=== PATIENT | female | born 1930 | race Hispanic/Latino ===

== ENCOUNTER 2018-03-17 14:15 | Observation (INO) | payer MEDICARE ==
--- NOTE | 2018-03-17 15:12 | ED PDOC ---
Arrival/HPI - General Historian: Patient, Family (daughter) - History of Present Illness Time/Duration: 1 week Symptom Onset: Gradual Symptom Course: Intermittent, Worsening - General Chief Complaint: Chest Pain Time Seen by Provider: 03/17/18 14:24 - History of Present Illness Narrative History of Present Illness (Text): 03/17/18 15:20 Patient is a 87 year old female with an extensive cardiac history (see below) presenting with 1 week history of worsening, intermittent chest discomfort. Patient is accompanied by her daughter, who is a nurse. Patient has been experiencing intermittent chest discomfort for 1 week which the patient and her daughter thought was indigestion. Each episode of chest discomfort lasts for approximately 10 minutes. It is located substernally/left side of her chest. Patient has been taking Maalox for the past 5 days with mild improvement. The patient also reports that her chest is very tender if anything touches it. She took tylenol which normally helps but got no relief. Daughter also states that she has noticed that the patient's sternum has been protruding more than usual over the past couple of days. Her sternum protrudes at baseline due to prior open heart surgery but it has been more prominent recently. Patient states that she can normally tell if her chest discomfort is indigestion vs cardiac in nature and today just felt different, which is why she decided to come to the hospital. She also reports increased urinary frequency but denies dysuria or incontinence. She states that she also started to have left sided flank pain today. Patient denies fevers, chills, nausea, vomiting, diarrhea, constipation, shortness of breath, palpitations, abdominal pain, numbness, tingling, lightheadedness or dizziness. PMH: Thyroid cancer (s/p resection), hypothyroid, hypertension, CAD and HLD Cardiac History - 2008: [place] (2 stents), 2009: [place] (4 more stents), 2010: Triple bypass and Aortic valve replacement (cow) Per daughter, Patient's daughter has recently taken over her medications because the patient has been more forgetful of late and has not been taking her medications daily. (HamDudley) Past Medical History - Provider Review Nursing Documentation Reviewed: Yes - Infectious Disease Hx of Infectious Diseases: None - Cardiac Hx Cardiac Disorders: Yes (triple bypass with aortic valve replacement) Hx Hypertension: Yes - Pulmonary Hx Chronic Obstructive Pulmonary Disease (COPD): Yes (home nebulizer) - Neurological Hx Neurological Disorder: Yes Hx Transient Ischemic Attacks (TIA): Yes - HEENT Hx HEENT Disorder: Yes Hx Cataracts: Yes (LEFT, right cataract sx-LASER SX) - Renal Hx Renal Disorder: No - Endocrine/Metabolic Hx Diabetes Mellitus Type 2: Yes Hx Hypothyroidism: Yes (THYROIDECTOMY) - Hematological/Oncological Hx Blood Disorders: Yes Hx Anemia: Yes - Integumentary Hx Dermatological Disorder: No - Musculoskeletal/Rheumatological Hx Musculoskeletal Disorders: Yes Hx Back Pain: Yes Hx Falls: Yes Hx Fractures: Yes (FEMUR FX) Hx Unsteady Gait: Yes (cane/walker) - Gastrointestinal Hx Gastrointestinal Disorders: Yes (GI BLEED,SIGMOID RESECTION,UMBILICAL HERNIA, ) Hx Diverticulitis: Yes Hx Gall Bladder Disease: Yes (CHOLECYSTECTOMY) - Genitourinary/Gynecological Hx Genitourinary Disorders: Yes Hx Urinary Tract Infection: Yes - Psychiatric Hx Psychophysiologic Disorder: Yes Hx Anxiety: Yes Hx Depression: No Hx Emotional Abuse: No Hx Physical Abuse: No Hx Substance Use: No - Surgical History Hx Cholecystectomy: Yes Hx Coronary Stent: Yes (x6) Hx Valve Replacement: Yes Other/Comment: umbilical hernia, laser sx right eye - Anesthesia Hx Anesthesia: Yes Hx Anesthesia Reactions: No Hx Malignant Hyperthermia: No - Suicidal Assessment Feels Threatened In Home Enviroment: No Family/Social History - Physician Review Nursing Documentation Reviewed: Yes Family/Social History: No Known Family HX Smoking Status: Never Smoked Hx Alcohol Use: No Hx Substance Use: No Allergies/Home Meds Allergies/Adverse Reactions: Allergies moxifloxacin HCl [From Avelox] Allergy (Verified 04/22/16 12:02) RASH nitrofurantoin [From Macrobid] Allergy (Verified 04/22/16 12:02) RASH nitrofurantoin macrocrystalline [From Macrobid] Allergy (Verified 04/22/16 12:02 ) RASH Home Medications: Home Meds Medication Instructions Recorded Confirmed Aspirin [Ecotrin] 325 mg PO DAILY 12/10/13 03/17/18 Metoprolol Succinate [Toprol Xl] 50 mg PO DAILY 12/10/13 03/17/18 Levothyroxine Sodium 100 mcg PO DAILY 04/22/16 03/17/18 Risperidone [Risperdal] 1 tab PO BID 03/17/18 03/17/18 Review of Systems - Physician Review All systems were reviewed & negative as marked: Yes - Review of Systems Constitutional: Normal. absent: Fatigue, Fevers Eyes: Normal. absent: Vision Changes ENT: Normal Respiratory: Normal. absent: SOB, Cough Cardiovascular: Chest Pain. absent: Palpitations, Edema, STEWART Gastrointestinal: absent: Abdominal Pain, Constipation, Diarrhea, Nausea, Vomiting Genitourinary Female: Frequency. absent: Dysuria, Hematuria Musculoskeletal: Back Pain (left flank) Skin: Normal Neurological: Normal. absent: Headache, Dizziness, Focal Weakness Endocrine: Normal Psychiatric: Normal Physical Exam Vital Signs Reviewed: Yes Temperature: Afebrile Blood Pressure: Hypertensive Pulse: Regular Respiratory Rate: Normal Appearance: Positive for: Well-Appearing, Non-Toxic, Comfortable Pain Distress: None Mental Status: Positive for: Alert and Oriented X 3 Finger Stick Blood Glucose: 101 - Systems Exam Head: Present: Atraumatic, Normocephalic Pupils: Present: PERRL Extroacular Muscles: Present: EOMI Conjunctiva: Present: Normal Mouth: Present: Moist Mucous Membranes Neck: No: Lymphadenopathy Respiratory/Chest: Present: Clear to Auscultation, Good Air Exchange, Tender to Palpation (TTP on sternum, most tender over left chest. ), Other (well healed sternotomy scar, protrusion of sternum). No: Respiratory Distress, Accessory Muscle Use Cardiovascular: Present: Regular Rate and Rhythm, Normal S1, S2. No: Murmurs Abdomen: No: Tenderness, Distention, Peritoneal Signs Back: Present: CVA Tenderness (b/l) Upper Extremity: Present: Normal Inspection, NORMAL PULSES. No: Cyanosis, Edema Lower Extremity: Present: Normal Inspection. No: Edema, CALF TENDERNESS Neurological: Present: GCS=15, CN II-XII Intact, Speech Normal Skin: Present: Warm, Dry, Normal Color. No: Rashes Psychiatric: Present: Alert, Oriented x 3, Normal Insight, Normal Concentration Vital Signs Temp Pulse Resp BP Pulse Ox 03/17/18 20:57 67 18 98 03/17/18 17:28 98.3 F 72 18 162/66 H 94 L 03/17/18 14:16 97.9 F 71 18 152/90 H 95 Medical Decision Making Re-evaluation Time: 18:24 Reassessment Condition: Re-examined, Improving,but remains with symptoms - Lab Interpretations I have reviewed the lab results: Yes ED Course and Treatment: 03/17/18 15:53 Orders: * Aspirin 325mg PO stat * CBC * CMP * Mag * Phos * MARIELA * EKG * CT Chest/abd/pelvis * Urinalysis/culture 03/17/18 18:24 Patient is still experiencing mild intermittent chest pain. Discussed plan to admit patient for observation with patient and her daughter at bedside. Patient agrees to overnight observation. Discussed case with Dr. Anna. He has agreed to admit patient for chest pain observation under his service. He requested patient's solutions specialist, Dr. Keen be placed as consult. (Ham,Dudley) Seen and examined with resident. 87 y/o F p/w chest pain. On exam, reproducible tenderness. (Tom Mcmanus) - Lab Interpretations Lab Results: 03/17/18 14:30 03/17/18 14:30 Lab Results 03/17/18 15:47: Urine Color Yellow, Urine Appearance Clear, Urine pH 6.5, Ur Specific [place] 1.020, Urine Protein 30 H, Urine Glucose (UA) Negative, Urine Ketones Negative, Urine Blood Negative, Urine Nitrate Negative, Urine Bilirubin Negative, Urine Urobilinogen 0.2, Ur Leukocyte Esterase Negative, Urine RBC 0 - 2, Urine WBC 1 - 3, Ur Epithelial Cells 4 - 5, Amorphous Sediment Few, Urine Bacteria Mod, Hyaline Casts 0 - 2, Fine Granular Casts 0 - 2, Urine Other Uyeast 03/17/18 15:07: POC Glucose (mg/dL) 101 03/17/18 14:30: WBC 8.3 D, RBC 4.83, Hgb 13.5, Hct 40.7, MCV 84.3, MCH 28.0, MCHC 33.2, RDW 14.4, Plt Count 256, MPV 8.9, Gran % 69.6 H, Lymph % (Auto) 17.7 L, [place] % (Auto) 10.0 H, Eos % (Auto) 1.7, Baso % (Auto) 1.0, Gran # 5.81, Lymph # (Auto) 1.5, [place] # (Auto) 0.8 H, Eos # (Auto) 0.1, Baso # (Auto) 0.08 03/17/18 14:30: Sodium 139, Potassium 4.4, Chloride 103, Carbon Dioxide 26, Anion Gap 14, BUN 15, Creatinine 0.8, Est GFR ( Amer) > 60, Est GFR (Non- Af Amer) > 60, Random Glucose 122 H, Calcium 9.1, Phosphorus 3.5, Magnesium 2.0 , Total Bilirubin 1.0, AST 25, ALT 32, Alkaline Phosphatase 94, Total Creatine Kinase 110, Troponin I 0.02 D, Total Protein 7.6, Albumin 4.2, Globulin 3.4, Albumin/Globulin Ratio 1.2 - RAD Interpretation Narrative RAD Interpretations (Text): 03/17/18 18:26 CT chest/abd/pelvis w/o: No renal ureteral or bladder calculi appreciated on this postcontrast enhanced study. No hydronephrosis or hydroureter. Bilateral benign-appearing renal cortical hypodense masses resembling renal cysts. No suspicious changes here perceived the conspicuity is greater on the current postcontrast enhanced study. 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 Appendix not visualized with certainty. Pericecal inflammatory changes. Rectosigmoid and sigmoid diverticulosis. No complicating diverticulitis. 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 Right lateral thrombus noted no dissection appreciated. Extensive atherosclerotic vascular disease. Post cholecystectomy. No unexpected dilated ducts. Fatty liver. Thoraco lumbar spondylosis and degenerative disc disease changes. L4 on L5 spondylolysis pieces attributed to degenerative ligamentous laxity. The spinal canal this level appear stenotic (Dudley Cheek) Radiology Orders: 03/17/18 15:10 CHEST,ABD,PEL W/IV CONT ONLY [CT] Stat - EKG Interpretation EKG Interpretation (Text): 03/17/18 16:00 NSR @ 68bpm, mild left axis deviation, inverted T waves in leads I and aVL - unchanged from EKG on 04/23/16 (Dudley Cheek) - Medication Orders Current Medication Orders: Discontinued Medications Al Hydrox/Mg Hydrox/Simethicone (Maalox Plus 30 Ml) 30 ml PO STAT STA Stop: 03/17/18 21:07 Alprazolam (Xanax) 0.25 mg PO STAT STA PRN Reason: Protocol Stop: 03/17/18 16:39 Last Admin: 03/17/18 16:50 Dose: 0.25 mg Aspirin (Ecotrin) 325 mg PO STAT STA Stop: 03/17/18 15:19 Last Admin: 03/17/18 15:44 Dose: 325 mg Disposition/Present on Arrival - Present on Arrival Any Indicators Present on Arrival: No History of DVT/PE: No History of Uncontrolled Diabetes: No Urinary Catheter: No History of Decub. Ulcer: No History Surgical Site Infection Following: None - Disposition Have Diagnosis and Disposition been Completed?: Yes Disposition Time: 18:20 Patient Plan: Observation - Disposition Diagnosis: Chest pain Disposition: HOSPITALIZED Patient Problems: Current Active Problems Problem Status Onset Chest pain Acute Condition: GUARDED
[2018-03-17] MEDS ORDERED: Aspirin 325 mg EC Tablets PO STA (15:18)
[2018-03-17 15:27] LABS: ALB/GLOB RATIO 1.2 (1.1-1.8); ALBUMIN 4.2 g/dL (3.0-4.8); ALT/SGPT 32 U/L (7-56); AST/SGOT 25 U/L (14-36); BLOOD UREA NITROGEN 15 mg/dL (7-21); CALCIUM 9.1 mg/dL (8.4-10.5); GFR AFRICAN-AMERICAN > 60; GFR NON-AFRICAN AMERICAN > 60
[2018-03-17 15:30] LABS: BASO # 0.08 K/mm3 (0.0-2.0); EOS # 0.1 (0.0-0.7); EOS % 1.7 % (1.5-5.0); GRAN # 5.81 (1.4-6.5); GRAN % 69.6 % (50.0-68.0); HEMOGLOBIN 13.5 g/dL (12.0-16.0); LYMPH # 1.5 (1.2-3.4); LYMPH % 17.7 % (22.0-35.0); MEAN CELL VOLUME 84.3 fl (80.0-105.0); MEAN CORPUSCULAR HGB CONC 33.2 g/dl (31.0-37.0); MEAN PLATELET VOLUME 8.9 fl (7.0-11.0); MONO # 0.8 (0.1-0.6); RBC 4.83 10^6/uL (3.5-6.1); RED CELL DISTRIBUTION WIDTH 14.4 % (11.5-14.5); WHITE BLOOD COUNT 8.3 10^3/ul (4.5-11.0)
[2018-03-17] MEDS ORDERED: Iohexol 350 MG/100 ML VIAL ONE (15:34)
[2018-03-17 15:38] LABS: TROPONIN I 0.02 ng/mL
[2018-03-17 15:57] LABS: PH,URINE 6.5 (4.7-8.0); URINE BILIRUBIN NEGATIVE (NEGATIVE); URINE BLOOD NEGATIVE (NEGATIVE); URINE GLUCOSE (UA) NEGATIVE (NEGATIVE); URINE LEUKOCYTE ESTERASE NEGATIVE Leu/uL (NEGATIVE); URINE PROTEIN 30 mg/dL (<30 mg/dL); URINE UROBILINOGEN 0.2 E.U./dL (<1 E.U./dL)
[2018-03-17 15:59] LABS: URINE APPEARANCE CLEAR (CLEAR); URINE COLOR YELLOW (YELLOW)
[2018-03-17 16:06] LABS: URINE RBC 0 - 2 /hpf (0-2)
[2018-03-17 16:08] LABS: URINE BACTERIA MOD (NEG); URINE FINE GRANULAR CAST 0 - 2 /hpf (0-2); URINE HYALINE CAST 0 - 2 /hpf
[2018-03-17 16:09] LABS: URINE AMORPHOUS SEDIMENT FEW
--- NOTE | 2018-03-17 16:58 | CT ---
Date of service: 03/17/2018 PROCEDURE: CT Chest, Abdomen and Pelvis with intravenous contrast HISTORY: chest pain, left flank pain COMPARISON: None available. TECHNIQUE: IV dose administered: Radiation dose: Total exam DLP = mGy-cm. This CT exam was performed using one or more of the following dose reduction techniques: Automated exposure control, adjustment of the mA and/or kV according to patient size, and/or use of iterative reconstruction technique. FINDINGS: CT CHEST WITH CONTRAST: LUNGS: Trace linear discoid atelectasis left lung base. Minimal posterior hypo ventilatory changes No nodule, mass or consolidation. MEDIASTINUM: Calcified thoracic aorta. No aortic aneurysm. Normal size Pulmonary arterial trunk. No aortic dissection. Normal size heart. Coronary artery calcifications and/or stents LYMPH NODES: Shotty mediastinal lymph nodes no suspect lymphadenopathy. PLEURA: Unremarkable. No pneumothorax. No pleural fluid. BONES: Thoraco lumbar spondylosis. L5-3 445 and L5-S1 facet hypertrophic arthrosis. L4 anterior subluxation on L 5-attributed to degenerative ligamentous laxity. No fracture gross lytic lesion appreciated. Multi level diffuse lumbar vacuum disc phenomena/degenerative disc disease changes. Midline sternotomy OTHER FINDINGS: None. CT ABDOMEN AND PELVIS: LIVER: Diffuse fatty liver appear gross lesion or ductal dilatation. GALLBLADDER AND BILE DUCTS: Cholecystectomy status with clips. . The common bile duct prominence is compatible with patient's age and post cholecystectomy status. PANCREAS: Unremarkable. No gross lesion or ductal dilatation. SPLEEN: Unremarkable. ADRENALS: Unremarkable. No mass. KIDNEYS AND URETERS: Bilateral renal cortical hypodensities none larger than 2 cm in size. Bilateral renal cortical cyst inferred. . No hydronephrosis. No suspicious appearing solid mass. . No obstructing renal calculi appreciated VASCULATURE: Atherosclerotic vascular calcifications present. .. There is borderline fusiform aneurysmal dilatation of the infrarenal descending abdominal aortic at 2.5. No marked interval change here perceived. There is right lateral descending abdominal aortic thrombus -no displacement of the arterial calcification here to suggest dissection. This thrombus is probably faintly perceived on the prior study albeit more conspicuous on this postcontrast enhanced study. BOWEL: A few rectosigmoid diverticuli without complicating diverticulitis noted. There is moderate stool present. No definitive diverticulitis appreciated. No bowel obstruction seen. Prior appearance of the sigmoid more distended on this exam and more unremarkable appearing on this exam. No obstruction. No gross mural thickening. In the ascending colon a approximately 2.5 cm fatty mass is noted a intra mural right colonic lipoma is inferred. No obstruction here seen. Findings are noted on axis series 6, image 90 APPENDIX: Not identified. No pericecal inflammatory changes noted. PERITONEUM: Bordering the anterior peritoneum posterior abdominal wall there is postsurgical changes inferred as treatment for mesh for ventral hernia. It appears unchanged No free fluid. No free air. LYMPH NODES: Unremarkable. No enlarged lymph nodes. BLADDER: Unremarkable. REPRODUCTIVE: Uterus not visualized correlate clinically. No adnexal masses. BONES: As noted in the above bone section OTHER FINDINGS: None. IMPRESSION: No renal ureteral or bladder calculi appreciated on this postcontrast enhanced study. No hydronephrosis or hydroureter. Bilateral benign-appearing renal cortical hypodense masses resembling renal cysts. No suspicious changes here perceived the conspicuity is greater on the current postcontrast enhanced study. 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 Appendix not visualized with certainty. Pericecal inflammatory changes. Rectosigmoid and sigmoid diverticulosis. No complicating diverticulitis. 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 Right lateral thrombus noted no dissection appreciated. Extensive atherosclerotic vascular disease. Post cholecystectomy. No unexpected dilated ducts. Fatty liver. Thoraco lumbar spondylosis and degenerative disc disease changes. L4 on L5 spondylolysis pieces attributed to degenerative ligamentous laxity. The spinal canal this level appear stenotic .
[2018-03-17] MEDS ORDERED: Alum-Mag Hydrox-Simethicone Susp (30 mL) PO STA (21:06)
[2018-03-18 03:04] VITALS: O2SAT 96
[2018-03-18 03:30] VITALS: BMI 32.1
[2018-03-18] MEDS ORDERED: Levothyroxine 100 MCG TAB PO SCH (06:00)
--- NOTE | 2018-03-18 06:57 | CARD ---
APPROVED REPORT Date of service: 03/17/2018 EKG Measurement Heart [id number] <Conclusion> Normal sinus rhythm Left ventricular hypertrophy with repolarization abnormality Abnormal ECG
[2018-03-18 08:56] LABS: BASO # 0.04 K/mm3 (0.0-2.0); BASO % 0.4 % (0.0-3.0); EOS # 0.3 (0.0-0.7); EOS % 2.7 % (1.5-5.0); GRAN # 5.28 (1.4-6.5); GRAN % 55.2 % (50.0-68.0); HEMOGLOBIN 13.5 g/dL (12.0-16.0); LYMPH # 3.2 (1.2-3.4); LYMPH % 32.9 % (22.0-35.0); MEAN CELL VOLUME 83.6 fl (80.0-105.0); MEAN CORPUSCULAR HGB CONC 33.5 g/dl (31.0-37.0); MEAN PLATELET VOLUME 8.7 fl (7.0-11.0); MONO # 0.8 (0.1-0.6); MONO % 8.8 % (1.0-6.0); RBC 4.82 10^6/uL (3.5-6.1); RED CELL DISTRIBUTION WIDTH 14.3 % (11.5-14.5); WHITE BLOOD COUNT 9.6 10^3/ul (4.5-11.0)
--- NOTE | 2018-03-18 09:37 | CARD ---
APPROVED REPORT Date of service: 03/17/2018 EKG Measurement Heart [id number] <Conclusion> Normal sinus rhythm ST & T wave abnormality, consider lateral ischemia Abnormal ECG
[2018-03-18] MEDS ORDERED: Alum-Mag Hydrox-Simethicone Susp (30 mL) PO ONE (10:25)
[2018-03-18 10:40] VITALS: PULSE 76
[2018-03-18 11:25] VITALS: BP 173/89; RESP 18; TEMP 97.8
--- NOTE | 2018-03-18 16:06 | CON ---
Copied To: Tom Keen MD Attending MD: Tom Keen MD DATE: 03/18/2018 REASON FOR CONSULTATION: Chest pain. REQUESTING PHYSICIAN: Alok Anna MD. HISTORY: This is an 87-year-old woman, well-known to me with a history of coronary artery disease and aortic stenosis in the past. She has undergone a prior aortic valve replacement and bypass surgery, admitted with complaints of chest pain on and off for the past several days. She describes her pain as a sharp pain and heaviness across her chest. She has significant parasternal tenderness, which reproduces her pain. She cannot identify any precipitating factors. She does not use sublingual nitroglycerin for her pain. Her pain can last from several minutes to several hours. She notices it seemed to have worsen with damp weather. Initial cardiac enzymes and electrocardiograms are unremarkable. PAST MEDICAL HISTORY: Her past history is known for the problems mentioned above. She underwent three-vessel bypass surgery with aortic valve replacement and repair several years ago. She has a history of hypertension, diabetes, hypothyroidism, hyperlipidemia. She has a history of diverticulitis and underwent a bowel resection in the past. She also has prior history of cholecystectomy and thyroidectomy for thyroid cancer. CURRENT MEDICATIONS: Include aspirin, Synthroid, Risperdal, metoprolol 50 mg daily, lisinopril and DuoNeb inhaler. ALLERGIES: SHE HAS HAD REACTIONS TO MACRODANTIN AND MOXIFLOXACIN IN THE PAST. SOCIAL HISTORY: She is a former smoker. She denies alcohol use. She is and lives at home with her family. FAMILY HISTORY: Both parents from age-related illness. Ten-point review of systems is otherwise unremarkable. PHYSICAL EXAMINATION: GENERAL: She is a very elderly woman, appears comfortable at rest. VITAL SIGNS: Her blood pressure is 140/86 with pulse 72 and sinus, respirations 16. She is afebrile. HEENT: Normocephalic, atraumatic. NECK: Supple. No JVD noted. CHEST: Clear to auscultation and percussion. HEART: PMI displaced laterally with soft systolic murmur in the left sternal border. ABDOMEN: Soft, nontender. Normoactive bowel sounds. EXTREMITIES: No clubbing, cyanosis or edema. SKIN: Warm and dry. PSYCHIATRIC: Normal mood and affect. NEUROLOGIC: Alert and oriented x3. She does walk with a cane. DIAGNOSTIC DATA: Electrocardiogram reveals sinus rhythm with leftward axis, nonspecific ST-T abnormalities. Her white count is 8.3, hemoglobin and hematocrit 13.5 and 40.7 with platelet count of 256,000, potassium 4.4, BUN and creatinine are 15 and 0.8. Two sets of cardiac enzymes are negative. Chest x-ray does not appear to be informed. A CT of the chest, abdomen and pelvis was performed, which revealed extensive age-related changes and caused degenerative disk disease and extensive aortic atherosclerosis. IMPRESSION: 1. Chest pain, appears more likely musculoskeletal in nature. She does have significant reproducible pain with palpation of her anterior chest. Her symptoms does not appear consistent with coronary ischemia at this time. 2. Rest of problems as noted. RECOMMENDATIONS: The patient should be gotten out of bed and ambulated as tolerated. A repeat troponin is pending. Assuming this is unremarkable, discharge home will be appropriate. Analgesic therapy for her chest wall pain has been advised. We will be happy to follow along as needed and continue to follow as an outpatient as well. Thank you for this consultation. Tom Keen MD
== END 2018-03-18 15:59 | disposition home or self-care (01) ==
LOC: ED 14:15 → ERH 18:23 → 3RSO 21:39 → 2RSO 22:13
PROVIDERS: ADMIT Internal Medicine; ATTEND Internal Medicine
DX: R07.89 Other chest pain (principal); I25.10 Atherosclerotic heart disease of native coronary artery without angina pectoris; I10 Essential (primary) hypertension; E11.9 Type 2 diabetes mellitus without complications; E78.5 Hyperlipidemia, unspecified; E89.0 Postprocedural hypothyroidism; J44.9 Chronic obstructive pulmonary disease, unspecified; I25.2 Old myocardial infarction; Z85.850 Personal history of malignant neoplasm of thyroid; Z95.2 Presence of prosthetic heart valve; Z95.5 Presence of coronary angioplasty implant and graft; Z95.1 Presence of aortocoronary bypass graft; Z87.891 Personal history of nicotine dependence
CPT/HCPCS: 36415; 71260; 74177; 80053; 81001; 82554; 82948; 83735; 84100; 84484; 85025; 85651; 87086; 93005; 99285; G0378; Q9967

== ENCOUNTER 2018-10-21 18:13 | Emergency (ER) | payer MEDICARE ==
[2018-10-21 18:14] VITALS: BMI 32.1
[2018-10-21 19:45] VITALS: RESP 16
[2018-10-21 21:07] VITALS: BP 171/86; PULSE 69; TEMP 98.2; O2SAT 98
--- NOTE | 2018-10-21 21:20 | ED PDOC ---
Arrival/HPI - General Chief Complaint: Trauma Historian: Patient - History of Present Illness Narrative History of Present Illness (Text): 10/21/18 19:10 Sanna Manzano is an 87 year old female, whose past medical history includes CAD, hyperlipidemia, hypertension, hypothyroidism, and thyroid cancer s/p resection, who presents to the Emergency department status post strip and fall on a free-standing sign outside of a store. Patient complaining of left knee pain and pain to right forehead above the right eye. Patient states she hit her head when she fell, but denies any loss of consciousness. Patient denies any fever, chills, chest pain, shortness of breath, nausea, vomiting, diarrhea, urinary symptoms, back pain, neck pain, headache, dizziness, or any other complaints. Time/Duration: Prior to Arrival Symptom Onset: Sudden Symptom Course: Unchanged Activities at Onset: Light Context: Walking, Tripped Past Medical History - Provider Review Nursing Documentation Reviewed: Yes - Infectious Disease Hx of Infectious Diseases: None - Reproductive Menopause: Yes - Cardiac Hx Cardiac Disorders: Yes (triple bypass with aortic valve replacement) Hx Hypertension: Yes - Pulmonary Hx Chronic Obstructive Pulmonary Disease (COPD): Yes (home nebulizer) - Neurological Hx Neurological Disorder: Yes Hx Transient Ischemic Attacks (TIA): Yes - HEENT Hx HEENT Disorder: Yes Hx Cataracts: Yes (LEFT, right cataract sx-LASER SX) - Renal Hx Renal Disorder: No - Endocrine/Metabolic Hx Diabetes Mellitus Type 2: Yes Hx Hypothyroidism: Yes (THYROIDECTOMY,thyroid ca) - Integumentary Hx Dermatological Disorder: No - Musculoskeletal/Rheumatological Hx Musculoskeletal Disorders: Yes Hx Back Pain: Yes Hx Falls: Yes Hx Fractures: Yes (FEMUR FX) Hx Unsteady Gait: Yes (cane/walker) - Gastrointestinal Hx Gastrointestinal Disorders: Yes (GI BLEED,SIGMOID RESECTION,UMBILICAL HERNIA,) Hx Diverticulitis: Yes Hx Gall Bladder Disease: Yes (CHOLECYSTECTOMY) - Genitourinary/Gynecological Hx Genitourinary Disorders: Yes Hx Urinary Tract Infection: Yes - Psychiatric Hx Psychophysiologic Disorder: Yes Hx Anxiety: Yes Hx Depression: No Hx Emotional Abuse: No Hx Physical Abuse: No Hx Substance Use: No - Surgical History Hx Cardiac Catheterization: Yes Hx Cholecystectomy: Yes Hx Coronary Stent: Yes (x6) Hx Valve Replacement: Yes Other/Comment: umbilical hernia, laser sx right eye - Anesthesia Hx Anesthesia: Yes Hx Anesthesia Reactions: No Hx Malignant Hyperthermia: No - Suicidal Assessment Feels Threatened In Home Enviroment: No Family/Social History - Physician Review Nursing Documentation Reviewed: Yes Family/Social History: Unknown Family HX Smoking Status: Former Smoker Hx Alcohol Use: No Hx Substance Use: No Allergies/Home Meds Allergies/Adverse Reactions: Allergies moxifloxacin HCl [From Avelox] Allergy (Verified 10/21/18 18:19) RASH nitrofurantoin [From Macrobid] Allergy (Verified 10/21/18 18:19) RASH Home Medications: Home Meds Medication Instructions Recorded Confirmed Aspirin [Ecotrin] 325 mg PO DAILY 12/10/13 03/18/18 Metoprolol Succinate [Toprol Xl] 50 mg PO DAILY 12/10/13 03/17/18 Levothyroxine Sodium 100 mcg PO DAILY 04/22/16 03/18/18 Risperidone [Risperdal] 1 tab PO BID 03/17/18 03/17/18 Xanax 0.25 mg PO BID PRN 03/18/18 03/18/18 Review of Systems - Physician Review All systems were reviewed & negative as marked: Yes - Review of Systems Constitutional: Normal. absent: Fevers Eyes: Normal ENT: Normal Respiratory: Normal. absent: SOB, Cough Cardiovascular: Normal. absent: Chest Pain Gastrointestinal: Normal. absent: Abdominal Pain, Diarrhea, Nausea, Vomiting Genitourinary Female: Normal. absent: Dysuria, Frequency, Hematuria, Urine Output Changes Musculoskeletal: Arthralgias (+left knee pain). absent: Back Pain, Neck Pain Skin: Normal. absent: Rash Neurological: Normal. absent: Headache, Dizziness Endocrine: Normal Hemo/Lymphatic: Normal Psychiatric: Normal Physical Exam Vital Signs Reviewed: Yes Vital Signs Temp Pulse Resp BP Pulse Ox 10/21/18 21:01 98.2 F 69 16 171/86 H 98 10/21/18 19:05 73 16 197/96 H 96 Temperature: Afebrile Blood Pressure: Hypertensive Pulse: Regular Respiratory Rate: Normal Appearance: Positive for: Well-Appearing, Non-Toxic, Comfortable Pain Distress: None Mental Status: Positive for: Alert and Oriented X 3 - Systems Exam Head: Present: Atraumatic, Normocephalic, Swelling (Swelling over right forehead, above right eye), Ecchymosis (Ecchymosis bruising over right forehead, above right eye ) Pupils: Present: PERRL Extroacular Muscles: Present: EOMI Conjunctiva: Present: Normal Ears: Present: Normal, NORMAL TM, Normal Canal. No: Erythema, TM Bulging, Fluid, TM Perf Mouth: Present: Moist Mucous Membranes Pharnyx: Present: Normal. No: ERYTHEMA, EXUDATE, TONSILS ENLARGED, Peritonsilar Swelling, Uvular Deviation, Muffled/Hoarse Voice, Strider, Soft Palate/Uvular Edema Nose (External): Present: Atraumatic Nose (Internal): Present: Normal Inspection Neck: Present: Normal Range of Motion. No: Meningeal Signs, MIDLINE TENDERNESS, Paraspinal Tenderness Respiratory/Chest: Present: Clear to Auscultation, Good Air Exchange. No: Respiratory Distress, Accessory Muscle Use Cardiovascular: Present: Regular Rate and Rhythm, Normal S1, S2. No: Murmurs Abdomen: No: Tenderness, Distention, Peritoneal Signs Back: Present: Normal Inspection Upper Extremity: Present: Normal Inspection. No: Cyanosis, Edema Lower Extremity: Present: NORMAL PULSES, Normal ROM, Neurovascularly Intact, Capillary Refill < 2 s, Other (Abrasion over left anterior knee). No: Edema, Tenderness, Swelling, Erythema, Deformity, Temperature Abnormalties Neurological: Present: GCS=15, CN II-XII Intact, Speech Normal Skin: Present: Warm, Dry, Normal Color. No: Rashes Psychiatric: Present: Alert, Oriented x 3, Normal Insight, Normal Concentration Medical Decision Making ED Course and Treatment: 10/21/18 19:10 Impression: 87 year old female presents s/p trip and fall with left knee pain and pain above right eye. Plan: -- CT Head w/o contrast -- CT Orbits/Facials w/o contrast -- XR Right Elbow -- XR Lumbar Spine -- XR Left Knee -- Reassess and disposition Prior Visits: Notes and results from previous visits were reviewed. Progress Notes: Reviewed radiology, XR Right Shoulder shows no acute processes/fractures. XR Lumbar Spine shows no acute processes/fractures. XR Left Knee shows no acute processes/fractures. CT Head: BRAIN Chronic periventricular and subcortical microvascular disease is seen. VENTRICLES: There is generalized parenchymal atrophy noted as demonstrated by symmetrical dilatation of ventricles and sulci. ORBITS: The orbits are unremarkable. SINUSES AND MASTOIDS: The paranasal sinuses and mastoid air cells are clear. BONES: No fracture. SOFT TISSUES: Unremarkable. MISCELLANEOUS: No acute intracranial pathology. IMPRESSION: 1. There is generalized parenchymal atrophy noted as demonstrated by symmetrical dilatation of ventricles and sulci. 2. Chronic periventricular and subcortical microvascular disease is seen. 3. No acute intracranial pathology. Electronically signed on Oct 21, 2018 8:17:31 PM EST by: Omega Power M.D., MBA Certified By ABR & CBC[employer] Fellowship Trained MRI and CT Specialist CT Orbits/Facial: BONES: No acute fracture or aggressive appearing osseous lesion. The mandible is intact. SOFT TISSUES: The soft tissues are unremarkable. SINUSES: Chronic bilateral ethmoid and maxillary sinusitis. The remaining sinuses are clear. ORBITS: The orbits are normal. No retrobulbar hematoma or mass. IMPRESSION: Sinusitis. Otherwise unremarkable maxillofacial CT. Electronically signed on Oct 21, 2018 8:18:41 PM EST by: Omega Power M.D., MBA Certified By ABR & CBC[employer] Fellowship Trained MRI and CT Specialist - RAD Interpretation Radiology Orders: 10/21/18 19:13 HEAD W/O CONTRAST [CT] Stat ORBITS/ FACIALS W/O CONTRAST [CT] Stat KNEE LEFT 2 VIEWS (AP & LAT) [RAD] Stat 10/21/18 19:25 SHOULDER RIGHT [RAD] Stat 10/21/18 19:26 LS SPINE AP/LAT [RAD] Stat Payloader Operator: ED Physician, Radiologist - Scribe Statement The provider has reviewed the documentation as recorded by the Darren Crocker Provider Scribe Attestation: All medical record entries made by the Breannibtravis were at my direction and personally dictated by me. I have reviewed the chart and agree that the record accurately reflects my personal performance of the history, physical exam, medical decision making, and the department course for this patient. I have also personally directed, reviewed, and agree with the discharge instructions and disposition. Disposition/Present on Arrival - Present on Arrival Any Indicators Present on Arrival: No History of DVT/PE: No History of Uncontrolled Diabetes: No Urinary Catheter: No History of Decub. Ulcer: No History Surgical Site Infection Following: None - Disposition Have Diagnosis and Disposition been Completed?: Yes Diagnosis: Minor head injury Disposition: HOME/ ROUTINE Disposition Time: 20:30 Patient Problems: Current Active Problems Problem Status Onset Minor head injury Acute Condition: GOOD Discharge Instructions (ExitCare): Minor Head Injury (DC) Additional Instructions: SANNA MANZANO, thank you for letting us take care of you today. Your provider was Omega Matute DO and you were treated for FALL. The emergency medical care you received today was directed at your acute symptoms. If you were prescribed any medication, please fill it and take as directed. It may take several days for your symptoms to resolve. Return to the Emergency Department if your symptoms worsen, do not improve, or if you have any other problems. Please contact your doctor or call one of the physicians/clinics you have been referred to that are listed on the Patient Visit Information form that is included in your discharge packet. Bring any paperwork you were given at discharge with you along with any medications you are taking to your follow up visit. Our treatment cannot replace ongoing medical care by a primary care provider outside of the emergency department. Thank you for allowing the [facility] team to be part of your care today. Follow up with your primary care doctor in 1-2 days for re-evaluation and further management. Return to the emergency room if you have any concerns. Referrals: Christopher Anna MD [Primary Care Provider] - Follow up with primary Forms: Opara (Lithuanian)
--- NOTE | 2018-10-22 07:39 | CT ---
Date of service: 10/21/2018 PROCEDURE: CT HEAD WITHOUT CONTRAST. HISTORY: s/p fall r/o ICH and fx COMPARISON: Noncontrast head CT 12/11/2013. TECHNIQUE: Axial computed tomography images were obtained through the head/brain without intravenous contrast. Radiation dose: Total exam DLP = 778.58 mGy-cm. This CT exam was performed using one or more of the following dose reduction techniques: Automated exposure control, adjustment of the mA and/or kV according to patient size, and/or use of iterative reconstruction technique. FINDINGS: HEMORRHAGE: No intracranial hemorrhage. BRAIN: Good corticomedullary differentiation is seen. Reiterated diffuse cerebral atrophy and chronic microangiopathy. No suspicious extra-axial fluid collection is identified and the midline brain anatomy appears grossly nonfocal as imaged. No mass effect identified. VENTRICLES: Unremarkable. No hydrocephalus. CALVARIUM: No destructive bony lesion or displaced fracture identified including through the skullbase. PARANASAL SINUSES: Unremarkable as visualized. No significant inflammatory changes. MASTOID AIR CELLS: Unremarkable as visualized. No inflammatory changes. OTHER FINDINGS: None. IMPRESSION: Stable age related neuro degenerative changes are identified which appear age-appropriate. No definite intracranial findings or fracture. Concordant preliminary report from [facility], 10/21/2018, 8:17 p.m..
--- NOTE | 2018-10-22 07:42 | CT ---
Date of service: 10/21/2018 PROCEDURE: CT MAXILLOFACIAL BONES WITHOUT CONTRAST HISTORY: s/p fall r/o fx COMPARISON: None available. TECHNIQUE: Contiguous axial CT images of the maxillofacial bones were obtained. Coronal and sagittal reformats were generated. Radiation dose: Total exam DLP = 735.66 mGy-cm. This CT exam was performed using one or more of the following dose reduction techniques: Automated exposure control, adjustment of the mA and/or kV according to patient size, and/or use of iterative reconstruction technique. FINDINGS: NASAL BONES: Unremarkable. ORBITS: Right lateral periorbital edema. No postseptal findings bilaterally. Left preorbital soft tissue unremarkable. PARANASAL SINUSES/ MASTOIDS: Trace bilateral maxillary sinusitis. MAXILLA: Unremarkable. MANDIBLE/ TEMPOROMANDIBULAR JOINTS: Unremarkable. SKULL BASE: Unremarkable. TEMPORAL BONES: Middle ears and mastoid grossly unremarkable. OTHER FINDINGS: None. IMPRESSION: Trace bilateral maxillary sinusitis. Right periorbital soft tissue edema. No significant postseptal findings bilaterally. Exam otherwise unremarkable. No fracture identified. Preliminary report provided by [facility], 10/21/2018, 8:18 p.m..
--- NOTE | 2018-10-22 08:17 | RAD ---
Date of service: 10/21/2018 PROCEDURE: Left Knee Radiographs. HISTORY: Pain. COMPARISON: None. FINDINGS: BONES: Normal. No fracture. JOINTS: There is severe joint space narrowing in the medial compartment JOINT EFFUSION: None. OTHER FINDINGS: None. IMPRESSION: Severe joint space narrowing in the medial compartment
--- NOTE | 2018-10-22 08:19 | RAD ---
Date of service: 10/21/2018 PROCEDURE: Radiographs of the Lumbar Spine. HISTORY: s/p fall r/o fx COMPARISON: No prior. FINDINGS: BONES: Normal alignment. No listhesis. No fracture. DISC SPACES: Severe multilevel disc degeneration. There is 8 mm of anterior subluxation of L4 over L5. OTHER FINDINGS: Aortic calcification IMPRESSION: Severe multilevel disc degeneration. There is 8 mm of anterior subluxation of L4 over L5.
--- NOTE | 2018-10-22 08:19 | RAD ---
Date of service: 10/21/2018 PROCEDURE: Radiographs of the Right Shoulder HISTORY: s/p fall r/o fx COMPARISON: No prior. FINDINGS: BONES: Normal. No fracture. JOINTS: Normal. Glenohumeral and acromioclavicular joints preserved. No osteoarthritis. SOFT TISSUES: Normal. OTHER FINDINGS: None. IMPRESSION: Normal radiographs of the right shoulder.
== END 2018-10-21 21:48 | disposition home or self-care (01) ==
LOC: ED 18:13
DX: S09.90XA Unspecified injury of head, initial encounter (principal); W01.0XXA Fall on same level from slipping, tripping and stumbling without subsequent striking against object, initial encounter; Y92.89 Other specified places as the place of occurrence of the external cause